=== PATIENT | female | born 1995 | race Caucasian/White ===

== ENCOUNTER 2020-11-07 03:49 | Emergency (ER) | payer OTHER ==
[~2020-11-07] VITALS: Ht 185.4 cm; Wt 83.0 kg
--- NOTE | 2020-11-07 04:05 | NUR ---
pt reports coming into ed today d/t recent onset of covid like symptoms, sob, cp, cough, diarrhea, sore throat, fatigue. pt states "my sister tested positive and i was exposed to her". pt nad, changed into gown, sitting up on gurney, vss at this time. provided warm blankets for comfort, bed in lowest, call light on lap, rails up, wctm. marck ingram at bs for eval and poc.
[2020-11-07] MEDS ORDERED: ONDANSETRON ODT 4 MG ONE (05:25)
[2020-11-07 05:26] VITALS: BP 123/70
[2020-11-07] MEDS ORDERED: ONDANSETRON ODT 4 MG PO ONE (05:30)
--- NOTE | 2020-11-07 06:01 | NUR ---
Patient given discharge instructions and they have confirmed that they understand the instructions. Patient ambulatory with steady gait. NAD, DENIES ADDITIONAL QUESTIONS OR NEEDS AT THIS TIME, LEFT WITH ALL PERSONAL BELONGINGS.
== END 2020-11-07 06:02 | disposition home or self-care (01) ==
LOC: ED 04:00
DX: J06.9 Acute upper respiratory infection, unspecified (principal); Z20.828 Contact with and (suspected) exposure to other viral communicable diseases; J02.9 Acute pharyngitis, unspecified; M79.10 Myalgia, unspecified site; R05 Cough; R50.9 Fever, unspecified; R09.81 Nasal congestion; R94.31 Abnormal electrocardiogram [ECG] [EKG]
CPT/HCPCS: 71045; 87635; 93005; 99285; Q0162

== ENCOUNTER 2021-02-22 01:09 | Emergency (ER) | payer OTHER ==
[~2021-02-22] VITALS: Ht 185.4 cm; Wt 96.1 kg
[2021-02-22 01:17] VITALS: BP 108/74
--- NOTE | 2021-02-22 01:29 | NUR ---
CC OF VB STARTING A FEW HOURS AGO WITH LLQ PAIN AND CRAMPING. , PT STATES ALL HER OTHER PREGNANCIES HAVE BEEN MISCARGIES AROUND 2 MONTH CHERYL. MOM AT BEDSIDE
[2021-02-22] MEDS ORDERED: ACETAMINOPHEN 500 MG TABLET ONE (01:41)
--- NOTE | 2021-02-22 01:42 | NUR ---
PT TO IMAGING
[2021-02-22] MEDS ORDERED: ACETAMINOPHEN 500 MG TABLET PO ONE (02:00)
[2021-02-22 02:27] LABS: MICROSCOPIC INDICATED
[2021-02-22 02:31] LABS: BASOPHILS % (AUTO) 1 % (0-1); EOSINOPHILS % (AUTO) 1 % (1-7); LYMPHOCYTES % (AUTO) 20 % (22-44); MD NO; MEAN CORPUSCULAR HEMOGLOBIN 29.7 pg (27.0-34.8); MEAN CORPUSCULAR HGB CONC 33.7 g/dL (32.4-35.8); MEAN PLATELET VOLUME 7.3 fL (7.4-10.4); MONOCYTES % (AUTO) 6 % (2-9); NEUTROPHILS % (AUTO) 73 % (42-75); PLATELET COUNT 231 x10^3/uL (130-400); RED BLOOD COUNT 4.59 x10^6/uL (3.82-5.3); RED CELL DISTRIBUTION WIDTH 13.9 % (9.6-15.2)
[2021-02-22 02:33] LABS: ALBUMIN 3.3 g/dL (3.4-5.0); ANION GAP 7 mmol/L (5-15); CALCIUM 8.7 mg/dL (8.5-10.1); CHLORIDE 110 mmol/L (98-107); CREATININE 0.51 mg/dL (0.55-1.02)
--- NOTE | 2021-02-22 02:45 | NUR ---
Report received from MANUELA Ervin. This RN to assume care. Patient up for recheck by ERP.
--- NOTE | 2021-02-22 02:45 | NUR ---
REPORT GIVEN TO JQ. PT UP FOR RECHECK.
[2021-02-22] MEDS ORDERED: CEFDINIR 300 MG CAPSULE ONE (03:08)
--- NOTE | 2021-02-22 03:20 | NUR ---
Discharge instructions given. All questions and concerns addressed. Patient ambulatory with a steady gait. Belongings with patient.
[2021-02-22] MEDS ORDERED: CEFDINIR 300 MG CAPSULE PO ONE (03:30)
== END 2021-02-22 03:22 | disposition home or self-care (01) ==
LOC: ED 01:28
DX: O20.0 Threatened abortion (principal); O23.12 Infections of bladder in pregnancy, second trimester; Z3A.18 18 weeks gestation of pregnancy
CPT/HCPCS: 36415; 76815; 80048; 81001; 82040; 85025; 86901; 87086; 99284

== ENCOUNTER 2021-05-17 10:16 | Outpatient (CLI) | payer OTHER ==
[~2021-05-17] VITALS: Ht 185.4 cm; Wt 103.0 kg
[2021-05-17] MEDS ORDERED: ONDANSETRON 2MG/ML, 2ML IVPush PRN (10:30)
[2021-05-17] MEDS ORDERED: PLEASE ENTER HEIGHT AND WEIGHT MC SCH (10:30)
[2021-05-17] MEDS ORDERED: LACTATED RINGERS 1,000 ML IVBOLUS ONE (10:30)
[2021-05-17 11:04] LABS: ALBUMIN 3.3 g/dL (3.4-5.0); ANION GAP 7 mmol/L (5-15); CALCIUM 9.1 mg/dL (8.5-10.1); CHLORIDE 109 mmol/L (98-107)
[2021-05-17 11:07] LABS: ALANINE AMINOTRANSFERASE 19 U/L (12-78); ALKALINE PHOSPHATASE 101 U/L (45-117); BILIRUBIN,TOTAL 0.6 mg/dL (0.2-1.0); CREATININE 0.52 mg/dL (0.55-1.02); TOTAL PROTEIN 6.9 g/dL (6.4-8.2)
[2021-05-17 11:19] LABS: BASOPHILS % (AUTO) 0 % (0-1); EOSINOPHILS % (AUTO) 0 % (1-7); LYMPHOCYTES % (AUTO) 9 % (22-44); MEAN PLATELET VOLUME 7.7 fL (7.4-10.4); MONOCYTES % (AUTO) 5 % (2-9); NEUTROPHILS % (AUTO) 86 % (42-75); PLATELET COUNT 258 x10^3/uL (130-400); RED BLOOD COUNT 4.65 x10^6/uL (3.82-5.3); RED CELL DISTRIBUTION WIDTH 12.9 % (9.6-15.2)
[2021-05-17 12:15] LABS: MICROSCOPIC INDICATED
[2021-05-17] MEDS ORDERED: LACTATED RINGERS 1,000 ML IV SCH (12:30)
[2021-06-10] MEDS ORDERED: ONDA4TAB7 PO (12:38)
[2021-06-10] MEDS ORDERED: PNV1TAB.5 PO (12:38)
[2021-06-10] MEDS ORDERED: ASPI-963 PO (12:38)
== END 2021-05-17 12:45 | disposition home or self-care (01) ==
LOC: LDOP 10:16
PROVIDERS: ATTEND Obstetrics & Gynecology
DX: O21.2 Late vomiting of pregnancy (principal); O26.893 Other specified pregnancy related conditions, third trimester; R19.7 Diarrhea, unspecified; R10.9 Unspecified abdominal pain; Z3A.30 30 weeks gestation of pregnancy
CPT/HCPCS: 36415; 59025; 80053; 81001; 85025; 87086; 96361; 96374; J2405; J7120; 96360; 96372

== ENCOUNTER 2021-06-10 12:40 | Observation (INO) | payer OTHER ==
[~2021-06-10] VITALS: Ht 182.9 cm; Wt 105.0 kg
[~2021-06-10 12:40] MED LIST: ASPI-963 PO; ONDA4TAB7 PO; PNV1TAB.5 PO
[2021-06-10] MEDS ORDERED: MORPHINE SULFATE 4 MG/ML, 1ML IVPush PRN (13:30)
[2021-06-10] MEDS ORDERED: LACTATED RINGERS 1,000 ML IV SCH (13:30)
[2021-06-10] MEDS: ONDANSETRON 2MG/ML, 2ML IVPush PRN ×2 (13:35→17:00)
[2021-06-10] MEDS ORDERED: D5%-LACTATED RINGERS 1,000 ML IV SCH ×2 (18:00)
[2021-06-10] MEDS ORDERED: FAMOTIDINE 20 MG TABLET ONE (18:29)
[2021-06-10] MEDS ORDERED: FAMOTIDINE 20 MG/2 ML IVPush ONE (18:30)
[2021-06-10] MEDS ORDERED: FAMOTIDINE 20 MG TABLET PO ONE (19:00)
== END 2021-06-10 19:10 | disposition home or self-care (01) ==
LOC: LDOP 12:40 → LDIP 13:12
PROVIDERS: ADMIT Obstetrics & Gynecology; ATTEND Obstetrics & Gynecology
DX: O21.2 Late vomiting of pregnancy (principal); O26.893 Other specified pregnancy related conditions, third trimester; R10.9 Unspecified abdominal pain; O99.513 Diseases of the respiratory system complicating pregnancy, third trimester; J45.909 Unspecified asthma, uncomplicated; Z3A.33 33 weeks gestation of pregnancy
CPT/HCPCS: 59025; 76700; 76817; 83690; 96361; 96374; 96375; 96376; G0378; J2270; J2405; J7120; J7121; 96360

== ENCOUNTER 2021-07-19 12:13 | Inpatient (IN) | payer OTHER ==
[~2021-07-19] VITALS: Ht 185.4 cm; Wt 110.5 kg
[2021-07-22 08:00] VITALS: BP 137/79
== END 2021-07-22 13:30 | disposition home or self-care (01) | DRG 806 ==
LOC: LDIP 22:01 → 2NW 07-20 21:12
PROVIDERS: ADMIT Obstetrics & Gynecology; ATTEND Obstetrics & Gynecology
PROC: 10E0XZZ Delivery of Products of Conception, External Approach (ICD-10-PCS; principal; 2021-07-20)
PROC: 0KQM0ZZ Repair Perineum Muscle, Open Approach (ICD-10-PCS; 2021-07-20)
DX: O69.1XX0 Labor and delivery complicated by cord around neck, with compression, not applicable or unspecified (principal); O99.354 Diseases of the nervous system complicating childbirth; Z37.0 Single live birth; J45.909 Unspecified asthma, uncomplicated; O99.52 Diseases of the respiratory system complicating childbirth; F32.9 Major depressive disorder, single episode, unspecified; G43.909 Migraine, unspecified, not intractable, without status migrainosus; Z20.822 Contact with and (suspected) exposure to COVID-19; O99.344 Other mental disorders complicating childbirth; O70.1 Second degree perineal laceration during delivery; O71.82 Other specified trauma to perineum and vulva; Z3A.39 39 weeks gestation of pregnancy; Z91.040 Latex allergy status
CPT/HCPCS: 36415; J3490